=== PATIENT | male | born 1995 | race Caucasian/White ===

== ENCOUNTER 2019-09-21 13:18 | Inpatient (IN) | payer MEDICAID ==
[~2019-09-21] VITALS: Ht 167.6 cm; Wt 77.0 kg
[~2019-09-21 13:18] MED LIST: DIVA-78 PO; RISP2 PO
[2019-09-21] MEDS ORDERED: HALO5TAB2 PO (16:44)
[2019-09-21] MEDS ORDERED: HALO100V4 IM (16:44)
[2019-09-21 17:49] VITALS: BP 115/68
[2019-09-21] MEDS ORDERED: INFLUENZA VIRUS VACCINE QVS 2019-20 (3YR+)/PF 60 MCG/0.5 ML SYRINGE IM ONE (18:30)
[2019-09-21] MEDS: LORazepam 2 MG TABLET PO PRN (18:33)
[2019-09-21] MEDS: HALOPERIDOL 5 MG TABLET PO PRN (18:33)
[2019-09-22] MEDS: HALOPERIDOL 5 MG TABLET PO PRN ×3 (07:00→16:49)
[2019-09-22] MEDS: LORazepam 2 MG TABLET PO PRN ×3 (07:00→16:49)
[2019-09-22 07:48] LABS: BASOPHILS % (AUTO) 1.2 % (0.0-2.0); EOSINOPHILS % (AUTO) 2.4 % (1.0-6.0); HEMATOCRIT 50.6 % (41-53); HEMOGLOBIN 17.9 g/dL (13.5-17.5); LYMPHOCYTES # (AUTO) 2.4 K/uL (1.0-4.8); LYMPHOCYTES % (AUTO) 38.4 % (22.0-44.0); MEAN CORPUSCULAR HEMOGLOBIN 31.7 pg (26.0-34.0); MEAN CORPUSCULAR HGB CONC 35.4 G/dL (31.0-37.0); MEAN CORPUSCULAR VOLUME 90 fL (80-100); MONOCYTES # (AUTO) 0.5 K/uL (0.1-1.0); MONOCYTES % (AUTO) 8.7 % (2.0-9.0); NEUTROPHILS # (AUTO) 3.1 K/uL (1.8-7.7); NEUTROPHILS % (AUTO) 49.3 % (40.0-70.0); PLATELET COUNT (AUTO) 210 K/uL (150-450); RED BLOOD CELL COUNT(AUTO) 5.65 MIL/uL (4.50-5.90); RED CELL DISTRIBUTION WIDTH 13.4 % (11.5-14.5)
[2019-09-22 08:10] LABS: ALANINE AMINOTRANSFERASE 279 U/L (12-78); ALBUMIN 4.5 g/dL (3.4-5.0); ALKALINE PHOSPHATASE 80 U/L (46-116); ANION GAP 6 mmol/L (8-16); ASPARTATE AMINOTRANSFERASE 100 U/L (15-37); BILIRUBIN,TOTAL 1.7 mg/dL (0.1-1.0); CALCIUM, TOTAL 9.3 mg/dL (8.8-10.5); CARBON DIOXIDE 29 mmol/L (22-29); CHLORIDE 101 mmol/L (98-107); CHOL/HDL RATIO 4.5 (4.2-7.3); CHOLESTEROL 200 mg/dL (131-200); CREATININE 1.08 mg/dL (0.60-1.30); FREE T4 (FREE THYROXINE) 1.16 ng/dL (0.76-1.46); GLOMERULAR FILTR. RATE CALC > 60 mL/min (>60); GLUCOSE,RANDOM 80 mg/dL (70-110); HDL CHOLESTEROL 44 mg/dL (40-60); LDL CHOL (CALC.) 143 mg/dL (0-130); POTASSIUM 3.6 mmol/L (3.5-5.1); SODIUM SERUM 136 mmol/L (136-145); THYROID STIMULATING HORMONE 0.47 uIU/mL (0.36-3.74); TOTAL PROTEIN, SERUM 8.1 g/dL (6.4-8.2); TRIGLYCERIDES 63 mg/dL (15-150); UREA NITROGEN, BLOOD 9 mg/dL (7-18)
[2019-09-22 08:12] VITALS: BP 123/76
[2019-09-22 08:19] LABS: HEMOGLOBIN A1C 5.1 % (4.5-6.2)
[2019-09-22 16:00] VITALS: BP 116/62
[2019-09-22] MEDS: HALOPERIDOL 5 MG TABLET PO SCH (20:49)
[2019-09-22] MEDS: ZOLPIDEM TARTRATE 10 MG TABLET PO PRN (20:49)
[2019-09-23 06:10] VITALS: BP 110/68
[2019-09-23] MEDS: LORazepam 2 MG TABLET PO PRN ×3 (06:22→16:17)
[2019-09-23 08:33] VITALS: BP 132/76
[2019-09-23] MEDS: HALOPERIDOL 5 MG TABLET PO SCH ×2 (08:53→20:51)
[2019-09-23] MEDS: HALOPERIDOL 5 MG TABLET PO PRN ×2 (13:26→17:31)
[2019-09-23] MEDS ORDERED: GuaiFENesin/D-METHORPHAN [SUGAR-FREE] 200-20MG/10 ML SYRUP UDCUP PO PRN (16:00)
[2019-09-23] MEDS ORDERED: PETROLATUM,WHITE 28 GM JELLY TP PRN (16:00)
[2019-09-23] MEDS ORDERED: NICOTINE 14 MG/24 HOUR PATCH TD PRN (16:00)
[2019-09-23] MEDS ORDERED: LOPERAMIDE HCL 2 MG CAPSULE PO PRN (16:00)
[2019-09-23] MEDS ORDERED: IBUPROFEN 400 MG TABLET PO PRN (16:00)
[2019-09-23] MEDS ORDERED: DOCUSATE SODIUM 100 MG CAPSULE PO PRN (16:00)
[2019-09-23] MEDS ORDERED: MAGNESIUM HYDROXIDE SUSPENSION 30 ML UDCUP PO PRN (16:00)
[2019-09-23] MEDS ORDERED: ONDANSETRON HCL 4 MG TABLET PO PRN (16:00)
[2019-09-23] MEDS ORDERED: CloNIDine HCL 0.1 MG TABLET PO PRN (16:00)
[2019-09-23] MEDS ORDERED: ACETAMINOPHEN 325 MG TABLET PO PRN (16:00)
[2019-09-23] MEDS ORDERED: ALBUTEROL SULFATE HFA 90 MCG/PUFF 8 GM INHALER IH PRN (16:00)
[2019-09-23] MEDS ORDERED: MAG HYDROX/AL HYDROX/SIMETH ES 30 ML SUSPENSION UDCUP PO PRN (16:00)
[2019-09-23 16:22] VITALS: BP 113/73
[2019-09-23] MEDS: ZOLPIDEM TARTRATE 10 MG TABLET PO PRN (20:51)
[2019-09-24 04:13] VITALS: BP 110/88
[2019-09-24] MEDS: LORazepam 2 MG TABLET PO PRN (06:58)
[2019-09-24] MEDS: HALOPERIDOL 5 MG TABLET PO SCH (08:46)
[2019-09-24] MEDS ORDERED: HALO5TAB2 PO (09:23)
[2019-09-24 10:02] VITALS: BP 122/78
[2019-09-24 16:00] VITALS: BP 110/70
== END 2019-09-24 18:05 | disposition home or self-care (01) | DRG 750 ==
LOC: B3A 18:19
DX: F20.0 Paranoid schizophrenia (principal); E78.5 Hyperlipidemia, unspecified; F12.10 Cannabis abuse, uncomplicated; Y09 Assault by unspecified means; Z82.49 Family history of ischemic heart disease and other diseases of the circulatory system; Z79.899 Other long term (current) drug therapy; Z28.21 Immunization not carried out because of patient refusal
CPT/HCPCS: 83036; 84439; 84443; 87081